=== PATIENT | female | born 1945 | race Caucasian/White ===

== ENCOUNTER → 2017-06-24 | Day surgery (SDC) | payer MEDICARE ==
[~2017-06-24] VITALS: Ht 175.3 cm; Wt 58.5 kg
[~2017-06-24] MED LIST: /WARF25TA PO; ACETYLCHOLINE OPHTH SOLN 1% 2ML (MIOCHOL-E) As Ordered ONE; ACTE20IN SQ; BALANCED SALT IRRIGATION SOLUTION 500ML BAG (FOR OR EYE MACHINE) As Ordered ONE; CEFUROXIME 1MG/0.1ML INTRACAMERAL INJ As Ordered ONE; CELE20TA OR; CITA40TA4 PO; COLA50CA3 PO; DUOVISC (0.50ML VISCOAT/0.55ML PROVISC) OPHTH KIT As Ordered ONE; FERR1TAB8 PO; HYDR-3719 PO; IRON325T3 PO; LIDOCAINE 0.75%/EPINEPHRINE 0.025% IN BSS 1ML SYR INTRACAMERAL (OR ONLY) As Ordered ONE; LR 1,000 ML IV ONE; METH2.5T OR; METH2.5TA PO; MIDAZOLAM INJ 2 MG/2 ML VIAL (J2250) As Ordered ONE; MOM30SS PO; NICO21DI26 EXT; OFLOXACIN 0.3 % (OCUFLOX) OPTH SOL 5ML OS ONE; OXYC30TA4 PO; PERCOCET PO; PHENYLEPHRINE 2.5% OPHTH SOL 2ML OS ONE; POLYBTL PO; POVIDONE-IODINE 5% OPHTH PREP SOL 30ML As Ordered ONE; PROPARACAINE 0.5% OPHTH SOL 15ML OS ONE; TOLT1CAP PO; TRAM50TA2 OR; TRAM50TA2 PO; TROPICAMIDE 1% OPHTH SOLN 2ML OS ONE; VICODINES TAB OR; fentaNYL 100 MCG/2 ML INJECTION (J3010) As Ordered ONE; remicade
[2017-06-24 09:30] VITALS: BP 154/85
--- NOTE | 2017-06-24 20:30 | RO ---
DATE OF PROCEDURE: 06/24/2017 PREOPERATIVE DIAGNOSES: 1. Dense visually significant nuclear sclerotic cataract left eye. 2. Small pupil left eye. POSTOPERATIVE DIAGNOSES: 1. Dense visually significant nuclear sclerotic cataract left eye. 2. Small pupil left eye. 3. Intraoperative floppy iris syndrome left eye. PROCEDURE: Complex cataract extraction with use of phacoemulsification, Malyugin ring and ReSure sealant, and placement of intraocular lens AU00TO, 22.5 diopter, left eye. SURGEON: Manuel Ricketts DO AMERICANIZATION TEACHER: ANESTHESIA: Local with monitored anesthesia care (MAC) epinephrine). COMPLICATIONS: None. POSTOPERATIVE CONDITION: Stable. INDICATION FOR SURGERY: Blurred vision left eye affecting patient's activities of daily living. DESCRIPTION OF PROCEDURE: The patient was seen in the preoperative area and properly identified. The correct operative eye was identified and marked. Attention was turned to that eye. The patient received optical antibiotics in the preoperative area. The patient then received topical dilating drops consisting of tropicamide and phenylephrine. The patient was then transferred to the operating room. The correct side was reidentified. The patient received topical anesthetics and antibiotics on the surface of the eye. The eye was prepped and draped in a sterile fashion. The upper and lower eyelids were isolated with Tegaderm tape, and the lids were held open with an adjustable speculum. Using a sideport blade, a paracentesis incision was made. Shugarcaine was then injected into the anterior chamber. Viscoelastic was then injected into the anterior chamber through the paracentesis. Using a 2.4 mm sharp-tipped keratome, the anterior chamber was entered via a temporal clear corneal incision. A 7.0mm Malyugin ring was placed. A continuous curvilinear capsulorrhexis was created with the aid of a 26-gauge cystotome and Utrata forceps. Hydrodissection was performed with BSS on a blunt cannula until the nucleus was freely mobile. The crystalline lens was phacoemulsified and aspirated. Additional cohesive viscoelastic was placed into the capsular bag to deepen it. A AU00TO, 22.5 diopter lens was placed into the capsular bag and confirmed by visualizing the continuous curvilinear capsulorrhexis. Additional irrigation and aspiration was used to remove cortical material. The Malyugin ring was removed from the eye, and irrigation and aspiration was then used removing the remaining viscoelastic. The clear corneal incision was hydrated with BSS on a blunt cannula. The lens was well positioned. The incisions were then tested for leaks and found to be negative. The eye was then palpated for appropriate pressure and adjusted accordingly with BSS. Several drops of antibiotics and Iopidine were placed in the eye. The eyelid speculum was then carefully removed. A shield was placed. The patient tolerated the procedure well and was discharged to the recovery unit in a stable condition. MICKI
== END | disposition home or self-care (01) ==
LOC: M SDC 07:25
PROVIDERS: ATTEND Ophthalmology
DX: H25.12 Age-related nuclear cataract, left eye (principal); H57.03 Miosis; H21.81 Floppy iris syndrome; M06.9 Rheumatoid arthritis, unspecified; F32.9 Major depressive disorder, single episode, unspecified; F41.9 Anxiety disorder, unspecified; Z78.0 Asymptomatic menopausal state; F17.210 Nicotine dependence, cigarettes, uncomplicated; Z79.899 Other long term (current) drug therapy
CPT/HCPCS: 66982; J2250; J3010; V2632

== ENCOUNTER 2017-07-08 07:01 | Day surgery (SDC) | payer MEDICARE ==
[~2017-07-08] VITALS: Ht 175.3 cm; Wt 58.5 kg
[~2017-07-08 07:01] MED LIST changes: -LR 1,000 ML IV ONE; -MIDAZOLAM INJ 2 MG/2 ML VIAL (J2250) As Ordered ONE; +OFLOXACIN 0.3 % (OCUFLOX) OPTH SOL 5ML OD ONE; -OFLOXACIN 0.3 % (OCUFLOX) OPTH SOL 5ML OS ONE; +PHENYLEPHRINE 2.5% OPHTH SOL 2ML OD ONE; -PHENYLEPHRINE 2.5% OPHTH SOL 2ML OS ONE; +PROPARACAINE 0.5% OPHTH SOL 15ML OD ONE; -PROPARACAINE 0.5% OPHTH SOL 15ML OS ONE; +TROPICAMIDE 1% OPHTH SOLN 2ML OD ONE; -TROPICAMIDE 1% OPHTH SOLN 2ML OS ONE; -fentaNYL 100 MCG/2 ML INJECTION (J3010) As Ordered ONE
[2017-07-08] MEDS ORDERED: fentaNYL 100 MCG/2 ML INJECTION (J3010) As Ordered ONE (07:12)
[2017-07-08] MEDS ORDERED: MIDAZOLAM INJ 2 MG/2 ML VIAL (J2250) As Ordered ONE (07:12)
[2017-07-08] MEDS ORDERED: LR 500 ML IV ONE (07:15)
[2017-07-08 09:30] VITALS: BP 163/98
[2017-07-08] MEDS ORDERED: ONDANSETRON 4MG/2ML VIAL (J2405) IV PRN (09:30)
[2017-07-08] MEDS ORDERED: LR 1,000 ML IV SCH (09:30)
--- NOTE | 2017-07-08 15:49 | IPN ---
DATE: 07/08/2017 PREOPERATIVE DIAGNOSES: 1. Visually significant nuclear sclerotic cataract right eye. 2. Small pupil. POSTOPERATIVE DIAGNOSES: 1. Visually significant nuclear sclerotic cataract right eye. 2. Small pupil. PROCEDURE: Complex cataract extraction with insertion of intraocular lens implant with use of Malyugin ring. AU00T0, 22.5 diopters, right eye SURGEON: Manuel Ricketts DO FORK ASSEMBLER: ANESTHESIA: Local with monitored anesthesia care (MAC). COMPLICATIONS: None. POSTOPERATIVE CONDITION: Stable. INDICATION FOR SURGERY: Blurred vision right eye affecting patient's activities of daily living. DESCRIPTION OF PROCEDURE: The patient was seen in the preoperative area and properly identified. The correct operative eye was identified and marked. Attention was turned to that eye. The patient received topical antibiotics in the preoperative area. The patient then received topical dilating drops consisting of Tropicamide and Phenylephrine. The patient was then transferred to the operating room. The correct side was re-identified. The patient received topical anesthetics and antibiotics on the surface of the eye. The eye was prepped and draped in a sterile fashion. The upper and lower eyelids were isolated with Tegaderm tape, and the lids were held open with an adjustable speculum. Using a sideport blade, a paracentesis incision was made. Intraocular preservative-free lidocaine was then injected into the anterior chamber. Viscoelastic was then injected into the anterior chamber through the paracentesis. Using a 2.4 mm sharp-tipped keratome, the anterior chamber was entered via a temporal clear corneal incision. A Malyugin ring was placed. A continuous curvilinear capsulorrhexis was created with the aid of a 26g cystotome and utrata forceps. Hydrodissection was performed with balanced salt solution (BSS) on a blunt cannula until the nucleus was freely mobile. The crystalline lens was phacoemulsified and aspirated. Additional cohesive viscoelastic was placed into the capsular bag to deepen it. An AU00T0, 22.5 diopters lens was placed into the capsular bag and confirmed by visualizing the continuous curvilinear capsulorrhexis. The Malyugin ring was removed. Additional irrigation and aspiration was used to remove cortical material and remaining viscoelastic. The clear corneal incision was hydrated with BSS on a blunt cannula. The lens was well positioned. The incisions were then tested for leaks and found to be negative. The eye was then palpated for appropriate pressure and adjusted accordingly with BSS. The eyelid speculum was carefully removed. A shield was placed. The patient tolerated the procedure well and was discharged to the recovery unit in a stable condition. MICKI
== END 2017-07-08 09:54 | disposition home or self-care (01) ==
LOC: M SDC 07:01
PROVIDERS: ATTEND Ophthalmology
DX: H25.11 Age-related nuclear cataract, right eye (principal); H57.03 Miosis; M06.9 Rheumatoid arthritis, unspecified; R23.3 Spontaneous ecchymoses; F41.9 Anxiety disorder, unspecified; F32.9 Major depressive disorder, single episode, unspecified; Z79.899 Other long term (current) drug therapy; Z92.21 Personal history of antineoplastic chemotherapy; Z98.51 Tubal ligation status; Z72.0 Tobacco use
CPT/HCPCS: 66982; J2250; J3010; V2632

== ENCOUNTER 2018-02-19 18:54 | Inpatient (IN) | payer MEDICARE ==
[2018-02-19 20:07] LABS: BASO # 0.1 10^3/uL (0.0-0.2); BASO % 0.8 % (0.0-1.0); EOS # 0.2 10^3/uL (0.0-0.50); EOS % 1.4 % (0.0-3.0); HEMATOCRIT 35.5 % (36.0-47.0); HEMOGLOBIN 12.5 g/dl (12.0-15.5); IMMATURE GRANULOCYTE % 0.7 % (0-3.0); LYMPH # 1.2 10^3/uL (1.5-4.5); MEAN CORPUSCULAR HEMOGLOBIN 32.8 pg (27.0-33.0); MEAN CORPUSCULAR HGB CONC 35.2 g/dl (32.0-36.5); MEAN CORPUSCULAR VOLUME 93.2 fl (80.0-96.0); MONO # 0.9 10^3/uL (0.0-0.8); MONO % 7.9 % (0.0-5.0); NEUTROPHILS # 8.7 10^3/uL (1.8-7.7); NEUTROPHILS % 78.2 % (36.0-66.0); PLATELET COUNT, AUTOMATED 213 10^3/uL (150-450); RED BLOOD COUNT 3.81 10^6/uL (4.00-5.40); RED CELL DISTRIBUTION WIDTH 12.4 % (11.5-14.5); WHITE BLOOD COUNT 11.1 10^3/uL (4.0-10.0)
[2018-02-19 20:11] LABS: INR 1.02; PARTIAL THROMBOPLASTIN TIME 29.3 SECONDS (26.8-37.9); PROTHROMBIN TIME 13.5 SECONDS (12.4-14.5)
[2018-02-19] MEDS: MORPHINE 2 MG/ML 1ML SYRINGE (J2270) IV (20:18)
[2018-02-19 20:57] LABS: ANION GAP 8 MEQ/L (8-16); BLOOD UREA NITROGEN 13 MG/DL (7-18); CALCIUM LEVEL 8.8 MG/DL (8.8-10.2); CARBON DIOXIDE LEVEL 31 MEQ/L (21-32); CHLORIDE LEVEL 96 MEQ/L (98-107); CREATININE FOR GFR 0.73 MG/DL (0.55-1.30); GLOMERULAR FILTRATION RATE > 60.0 (>39); GLUCOSE, FASTING 160 MG/DL (70-100); POTASSIUM SERUM 3.4 MEQ/L (3.5-5.1); SODIUM LEVEL 135 MEQ/L (136-145)
[2018-02-19 21:45] LABS: APPEARANCE, URINE HAZY (CLEAR); BACTERIA, URINE AUTO 2+ (NEGATIVE); BILIRUBIN, URINE AUTO NEGATIVE (NEGATIVE); BLOOD, URINE BLOOD 2+ (NEGATIVE); COLOR, URINE YELLOW (YELLOW); GLUCOSE, URINE (UA) AUTO NEGATIVE (NEGATIVE); KETONE, URINE AUTO NEGATIVE (NEGATIVE); LEUKOCYTE ESTERASE, URINE AUTO TRACE (NEGATIVE); MUCUS, URINE SMALL (NEGATIVE); NITRITE, URINE AUTO NEGATIVE (NEGATIVE); PROTEIN, URINE AUTO NEGATIVE (NEGATIVE); RBC, URINE AUTO 14 /HPF (0-3); SPECIFIC GRAVITY URINE AUTO 1.011 (1.002-1.035); SQUAMOUS EPITHELIAL CELL UR AU 2 /HPF (0-6); UROBILINOGEN, URINE AUTO 0.2 mg/dL (0.0-2.0); WBC, URINE AUTO 4 /HPF (0-3)
[2018-02-19] MEDS: MORPHINE 4 MG/ML 1ML VIAL/SYRINGE (J2270) IV (22:00)
[2018-02-19] MEDS: HEPARIN SOD (PORCINE) 5000 UNITS/ML VIAL SC (22:41)
[2018-02-19] MEDS: NS 1,000 ML IV (22:42)
[2018-02-19] MEDS: POTASSIUM CHLORIDE 10 MEQ SR TABLET PO (22:42)
[2018-02-20] MEDS: MORPHINE 4 MG/ML 1ML VIAL/SYRINGE (J2270) IV ×7 (00:08→21:59)
[2018-02-20] MEDS: HEPARIN SOD (PORCINE) 5000 UNITS/ML VIAL SC (05:55)
[2018-02-20 06:36] LABS: BASO % 0.2 % (0.0-1.0); HEMATOCRIT 25.9 % (36.0-47.0); IMMATURE GRANULOCYTE % 0.4 % (0-3.0); LYMPH # 0.9 10^3/uL (1.5-4.5); LYMPH % 6.2 % (24.0-44.0); MEAN CORPUSCULAR HEMOGLOBIN 33.3 pg (27.0-33.0); MEAN CORPUSCULAR HGB CONC 35.9 g/dl (32.0-36.5); MEAN CORPUSCULAR VOLUME 92.8 fl (80.0-96.0); MONO # 0.9 10^3/uL (0.0-0.8); MONO % 6.3 % (0.0-5.0); NEUTROPHILS # 12.9 10^3/uL (1.8-7.7); NEUTROPHILS % 86.9 % (36.0-66.0); PLATELET COUNT, AUTOMATED 171 10^3/uL (150-450); RED BLOOD COUNT 2.79 10^6/uL (4.00-5.40); RED CELL DISTRIBUTION WIDTH 12.4 % (11.5-14.5); WHITE BLOOD COUNT 14.9 10^3/uL (4.0-10.0)
[2018-02-20 06:47] LABS: HEMOGLOBIN 9.3 g/dl (12.0-15.5)
[2018-02-20 06:56] LABS: ESTIMATED AVERAGE GLUCOSE 91 MG/DL (60-110); HEMOGLOBIN A1c 4.8 %
[2018-02-20 06:59] LABS: ALBUMIN 3.1 GM/DL (3.2-5.2); ALBUMIN/GLOBULIN RATIO 1.24 (1.00-1.93); ALKALINE PHOSPHATASE 54 U/L (45-117); ALT/SGPT 17 U/L (12-78); ANION GAP 6 MEQ/L (8-16); AST/SGOT 13 U/L (7-37); BILIRUBIN,TOTAL 0.5 MG/DL (0.2-1.0); BLOOD UREA NITROGEN 15 MG/DL (7-18); CALCIUM LEVEL 7.9 MG/DL (8.8-10.2); CARBON DIOXIDE LEVEL 30 MEQ/L (21-32); CHLORIDE LEVEL 100 MEQ/L (98-107); CREATININE FOR GFR 0.52 MG/DL (0.55-1.30); GLOMERULAR FILTRATION RATE > 60.0 (>39); GLUCOSE, FASTING 155 MG/DL (70-100); MAGNESIUM LEVEL 1.8 MG/DL (1.8-2.4); POTASSIUM SERUM 3.7 MEQ/L (3.5-5.1); SODIUM LEVEL 136 MEQ/L (136-145); TOTAL PROTEIN 5.6 GM/DL (6.4-8.2)
[2018-02-20] MEDS: ACETAMINOPHEN TAB 650MG DOSE (2X325MG) PO (07:27)
[2018-02-20] MEDS: NS 1,000 ML IV (07:28)
[2018-02-20] MEDS: FLUoxetine 20 MG CAP PO (09:00)
[2018-02-20] MEDS: ONDANSETRON 4MG/2ML VIAL (J2405) IV (10:38)
[2018-02-20] MEDS: BUPIVACAINE HCL 0.25% 30 ML VIAL As Ordered (15:28)
[2018-02-20] MEDS ORDERED: MIDAZOLAM INJ 2 MG/2 ML VIAL (J2250) As Ordered (15:59)
[2018-02-20] MEDS ORDERED: KETAMINE HCL 200 MG/20 ML VIAL As Ordered (16:00)
[2018-02-20] MEDS ORDERED: fentaNYL 100 MCG/2 ML INJECTION (J3010) As Ordered (16:00)
[2018-02-20] MEDS: ceFAZolin 2 GM/D5W 50 ML IV BAG (J0690 PER 500MG) As Ordered (16:20)
[2018-02-20] MEDS: ceFAZolin 1GM INJ (J0690 PER 500MG) As Ordered (16:53)
[2018-02-20] MEDS ORDERED: PHENYLephrine HCL 500 MCG/5 ML (100MCG/ML) SYRINGE (J2370) As Ordered (17:38)
[2018-02-20] MEDS ORDERED: PHENYLEPHRINE INJ 10MG/ML VIAL (J2370) As Ordered ×2 (17:38→17:46)
[2018-02-20] MEDS: BUPIVACAINE/EPIN 0.5% 30 ML VIAL As Ordered (17:41)
[2018-02-20] MEDS: LR 1,000 ML IV ×2 (18:05→19:45)
[2018-02-20] MEDS: PHENYLEPHRINE HCL INJ 50 MG in D5W 500 ML IV (18:05)
[2018-02-20] MEDS ORDERED: ONDANSETRON 4MG/2ML VIAL (J2405) IV (18:30)
[2018-02-20] MEDS ORDERED: fentaNYL 100 MCG/2 ML INJECTION (J3010) IV (18:30)
[2018-02-20] MEDS ORDERED: PERCOCET 5MG/325MG TAB PO (18:30)
[2018-02-20] MEDS: NICOTINE 21MG/24HR 1 EA TRANSDERMAL TD (20:58)
[2018-02-20] MEDS: PERCOCET 5MG/325MG TAB PO (21:47)
[2018-02-21] MEDS: ceFAZolin SOD 1 GM in D5W MINI-BAG PLUS 50 ML IV ×2 (00:04→09:30)
[2018-02-21] MEDS: ACETAMINOPHEN TAB 650MG DOSE (2X325MG) PO (00:05)
[2018-02-21] MEDS: PERCOCET 5MG/325MG TAB PO ×4 (04:22→17:01)
[2018-02-21 06:44] LABS: BASO % 0.3 % (0.0-1.0); EOS % 0.1 % (0.0-3.0); HEMATOCRIT 18.2 % (36.0-47.0); IMMATURE GRANULOCYTE % 0.9 % (0-3.0); LYMPH # 1.3 10^3/uL (1.5-4.5); LYMPH % 12.4 % (24.0-44.0); MEAN CORPUSCULAR HEMOGLOBIN 33.3 pg (27.0-33.0); MEAN CORPUSCULAR HGB CONC 35.7 g/dl (32.0-36.5); MEAN CORPUSCULAR VOLUME 93.3 fl (80.0-96.0); MONO # 1.1 10^3/uL (0.0-0.8); MONO % 9.9 % (0.0-5.0); NEUTROPHILS # 8.2 10^3/uL (1.8-7.7); NEUTROPHILS % 76.4 % (36.0-66.0); PLATELET COUNT, AUTOMATED 119 10^3/uL (150-450); RED BLOOD COUNT 1.95 10^6/uL (4.00-5.40); RED CELL DISTRIBUTION WIDTH 12.5 % (11.5-14.5); WHITE BLOOD COUNT 10.7 10^3/uL (4.0-10.0)
[2018-02-21 06:46] LABS: HEMOGLOBIN 6.5 g/dl (12.0-15.5); POS COUNT POS FLAG
[2018-02-21 06:54] LABS: ALBUMIN 2.6 GM/DL (3.2-5.2); ALBUMIN/GLOBULIN RATIO 1.24 (1.00-1.93); ALKALINE PHOSPHATASE 41 U/L (45-117); ALT/SGPT 22 U/L (12-78); ANION GAP 6 MEQ/L (8-16); AST/SGOT 20 U/L (7-37); BILIRUBIN,TOTAL 0.4 MG/DL (0.2-1.0); BLOOD UREA NITROGEN 21 MG/DL (7-18); CALCIUM LEVEL 7.9 MG/DL (8.8-10.2); CARBON DIOXIDE LEVEL 28 MEQ/L (21-32); CHLORIDE LEVEL 100 MEQ/L (98-107); CREATININE FOR GFR 0.73 MG/DL (0.55-1.30); GLOMERULAR FILTRATION RATE > 60.0 (>39); GLUCOSE, FASTING 137 MG/DL (70-100); MAGNESIUM LEVEL 1.8 MG/DL (1.8-2.4); POTASSIUM SERUM 3.7 MEQ/L (3.5-5.1); SODIUM LEVEL 134 MEQ/L (136-145); TOTAL PROTEIN 4.7 GM/DL (6.4-8.2)
[2018-02-21 07:45] LABS: LDH LACTATE DEHYDROGENASE 237 U/L (84-246); TOTAL IRON BINDING CAPACITY 224 UG/DL (250-450)
[2018-02-21 08:03] LABS: FERRITIN 961 NG/ML (8-252)
[2018-02-21 08:26] LABS: IRON (FE) 44 UG/DL (50-170); PERCENT SATURATION 19.6 % (13.2-45.0)
[2018-02-21] MEDS: MORPHINE 4 MG/ML 1ML VIAL/SYRINGE (J2270) IV ×6 (08:30→21:49)
[2018-02-21] MEDS: SENOKOT S TAB PO ×2 (08:31→20:47)
[2018-02-21] MEDS: MIRALAX *UNIT DOSE* 17GM PACKET PO (08:31)
[2018-02-21] MEDS: FLUoxetine 20 MG CAP PO (08:31)
[2018-02-21] MEDS: MOM 30ML SUSPENSION UDC PO (08:31)
[2018-02-21] MEDS: NICOTINE 21MG/24HR 1 EA TRANSDERMAL TD (08:31)
[2018-02-21] MEDS: LR 1,000 ML IV ×2 (08:32→20:45)
[2018-02-21] MEDS: ONDANSETRON 4MG/2ML VIAL (J2405) IV (08:33)
[2018-02-21 10:35] LABS: IMMEDIATE SPIN CROSSMATCH 1 2
[2018-02-21] MEDS: LACTOBACILLUS ACIDOPHILUS CAP (BACID) PO ×2 (12:30→17:01)
[2018-02-21] MEDS: ALPRAZolam 0.25 MG TAB PO ×2 (13:45→21:47)
[2018-02-21 14:56] LABS: HEMATOCRIT 25.3 % (36.0-47.0); HEMOGLOBIN 8.9 g/dl (12.0-15.5)
[2018-02-21 14:58] LABS: INR 1.24; PROTHROMBIN TIME 15.8 SECONDS (12.4-14.5)
[2018-02-21 15:09] LABS: FOLATE 5.8 NG/ML (>5.4)
[2018-02-21 15:09] LABS: VITAMIN B12 LEVEL 262 PG/ML (247-911)
[2018-02-21] MEDS: WARFARIN SOD 5 MG TAB PO (15:55)
[2018-02-21] MEDS ORDERED: ANALGESIC BALM CRM 120 GM TOP (18:15)
[2018-02-21 21:04] LABS: HEMATOCRIT 25.5 % (36.0-47.0); HEMOGLOBIN 9.2 g/dl (12.0-15.5)
[2018-02-22] MEDS: MORPHINE 4 MG/ML 1ML VIAL/SYRINGE (J2270) IV (00:56)
[2018-02-22] MEDS: PERCOCET 5MG/325MG TAB PO ×5 (01:32→21:58)
[2018-02-22 06:41] LABS: BASO % 0.1 % (0.0-1.0); EOS % 0.2 % (0.0-3.0); HEMATOCRIT 23.5 % (36.0-47.0); HEMOGLOBIN 8.4 g/dl (12.0-15.5); IMMATURE GRANULOCYTE % 0.5 % (0-3.0); LYMPH # 1.7 10^3/uL (1.5-4.5); LYMPH % 17.7 % (24.0-44.0); MEAN CORPUSCULAR HEMOGLOBIN 32.3 pg (27.0-33.0); MEAN CORPUSCULAR HGB CONC 35.7 g/dl (32.0-36.5); MEAN CORPUSCULAR VOLUME 90.4 fl (80.0-96.0); MONO # 0.9 10^3/uL (0.0-0.8); MONO % 9.3 % (0.0-5.0); NEUTROPHILS # 6.8 10^3/uL (1.8-7.7); NEUTROPHILS % 72.2 % (36.0-66.0); RED CELL DISTRIBUTION WIDTH 14.1 % (11.5-14.5); WHITE BLOOD COUNT 9.5 10^3/uL (4.0-10.0)
[2018-02-22 06:47] LABS: INR 1.76
[2018-02-22 07:00] LABS: ALBUMIN 2.4 GM/DL (3.2-5.2); ALBUMIN/GLOBULIN RATIO 0.96 (1.00-1.93); ALKALINE PHOSPHATASE 41 U/L (45-117); ALT/SGPT 16 U/L (12-78); ANION GAP 6 MEQ/L (8-16); AST/SGOT 26 U/L (7-37); BILIRUBIN,TOTAL 0.5 MG/DL (0.2-1.0); BLOOD UREA NITROGEN 17 MG/DL (7-18); CALCIUM LEVEL 7.6 MG/DL (8.8-10.2); CARBON DIOXIDE LEVEL 26 MEQ/L (21-32); CHLORIDE LEVEL 100 MEQ/L (98-107); CREATININE FOR GFR 0.55 MG/DL (0.55-1.30); GLOMERULAR FILTRATION RATE > 60.0 (>39); GLUCOSE, FASTING 106 MG/DL (70-100); POTASSIUM SERUM 3.7 MEQ/L (3.5-5.1); SODIUM LEVEL 132 MEQ/L (136-145); TOTAL PROTEIN 4.9 GM/DL (6.4-8.2)
[2018-02-22 07:09] LABS: PLATELET COUNT, AUTOMATED 93 10^3/uL (150-450)
[2018-02-22 07:10] LABS: IMMATURE PLATELET FRACTION % 4.2 % (0.0-9.6)
[2018-02-22] MEDS: MIRALAX *UNIT DOSE* 17GM PACKET PO (08:02)
[2018-02-22] MEDS: NICOTINE 21MG/24HR 1 EA TRANSDERMAL TD (08:02)
[2018-02-22] MEDS: LACTOBACILLUS ACIDOPHILUS CAP (BACID) PO ×3 (08:03→17:00)
[2018-02-22] MEDS: ALPRAZolam 0.25 MG TAB PO ×2 (08:03→20:08)
[2018-02-22] MEDS: SENOKOT S TAB PO ×2 (08:03→20:08)
[2018-02-22] MEDS: FLUoxetine 20 MG CAP PO (08:03)
[2018-02-22] MEDS: MOM 30ML SUSPENSION UDC PO (08:04)
[2018-02-22 08:06] LABS: HAPTOGLOBIN 40 mg/dL (34-200)
[2018-02-22] MEDS: WARFARIN SOD 2.5 MG TAB PO (17:00)
[2018-02-23] MEDS: PERCOCET 5MG/325MG TAB PO ×5 (02:46→20:29)
[2018-02-23 06:39] LABS: BASO % 0.1 % (0.0-1.0); EOS # 0.1 10^3/uL (0.0-0.50); EOS % 1.4 % (0.0-3.0); HEMATOCRIT 22.4 % (36.0-47.0); HEMOGLOBIN 7.8 g/dl (12.0-15.5); IMMATURE GRANULOCYTE % 0.3 % (0-3.0); LYMPH # 2.1 10^3/uL (1.5-4.5); LYMPH % 28.6 % (24.0-44.0); MEAN CORPUSCULAR HEMOGLOBIN 31.8 pg (27.0-33.0); MEAN CORPUSCULAR HGB CONC 34.8 g/dl (32.0-36.5); MEAN CORPUSCULAR VOLUME 91.4 fl (80.0-96.0); MONO # 0.7 10^3/uL (0.0-0.8); MONO % 9.2 % (0.0-5.0); NEUTROPHILS # 4.5 10^3/uL (1.8-7.7); NEUTROPHILS % 60.4 % (36.0-66.0); PLATELET COUNT, AUTOMATED 122 10^3/uL (150-450); RED BLOOD COUNT 2.45 10^6/uL (4.00-5.40); RED CELL DISTRIBUTION WIDTH 13.8 % (11.5-14.5); WHITE BLOOD COUNT 7.4 10^3/uL (4.0-10.0)
[2018-02-23 06:49] LABS: INR 2.78; PROTHROMBIN TIME 30.5 SECONDS (12.4-14.5)
[2018-02-23 07:01] LABS: ALBUMIN 2.5 GM/DL (3.2-5.2); ALBUMIN/GLOBULIN RATIO 1.04 (1.00-1.93); ALKALINE PHOSPHATASE 38 U/L (45-117); ALT/SGPT 19 U/L (12-78); ANION GAP 4 MEQ/L (8-16); AST/SGOT 20 U/L (7-37); BILIRUBIN,TOTAL 0.5 MG/DL (0.2-1.0); BLOOD UREA NITROGEN 15 MG/DL (7-18); CALCIUM LEVEL 7.6 MG/DL (8.8-10.2); CARBON DIOXIDE LEVEL 31 MEQ/L (21-32); CHLORIDE LEVEL 100 MEQ/L (98-107); CREATININE FOR GFR 0.55 MG/DL (0.55-1.30); GLOMERULAR FILTRATION RATE > 60.0 (>39); GLUCOSE, FASTING 103 MG/DL (70-100); POTASSIUM SERUM 3.4 MEQ/L (3.5-5.1); SODIUM LEVEL 135 MEQ/L (136-145); TOTAL PROTEIN 4.9 GM/DL (6.4-8.2)
[2018-02-23] MEDS: MIRALAX *UNIT DOSE* 17GM PACKET PO (08:40)
[2018-02-23] MEDS: MOM 30ML SUSPENSION UDC PO (08:40)
[2018-02-23] MEDS: LACTOBACILLUS ACIDOPHILUS CAP (BACID) PO ×3 (08:40→17:08)
[2018-02-23] MEDS: FLUoxetine 20 MG CAP PO (08:41)
[2018-02-23] MEDS: POTASSIUM CHLORIDE 10 MEQ SR TABLET PO (08:41)
[2018-02-23] MEDS: NICOTINE 21MG/24HR 1 EA TRANSDERMAL TD (08:41)
[2018-02-23] MEDS: ALPRAZolam 0.25 MG TAB PO ×3 (08:41→21:47)
[2018-02-23] MEDS: SENOKOT S TAB PO ×2 (08:41→20:29)
[2018-02-23] MEDS: MORPHINE 4 MG/ML 1ML VIAL/SYRINGE (J2270) IV ×2 (10:20→22:58)
[2018-02-23 14:02] LABS: HEMATOCRIT 22.3 % (36.0-47.0); HEMOGLOBIN 7.9 g/dl (12.0-15.5); MEAN CORPUSCULAR HEMOGLOBIN 33.1 pg (27.0-33.0); MEAN CORPUSCULAR HGB CONC 35.4 g/dl (32.0-36.5); MEAN CORPUSCULAR VOLUME 93.3 fl (80.0-96.0); PLATELET COUNT, AUTOMATED 149 10^3/uL (150-450); RED BLOOD COUNT 2.39 10^6/uL (4.00-5.40); WHITE BLOOD COUNT 8.4 10^3/uL (4.0-10.0)
[2018-02-24] MEDS: PERCOCET 5MG/325MG TAB PO ×6 (01:32→23:49)
[2018-02-24 06:39] LABS: BASO % 0.6 % (0.0-1.0); EOS # 0.1 10^3/uL (0.0-0.50); EOS % 2.1 % (0.0-3.0); HEMATOCRIT 22.2 % (36.0-47.0); HEMOGLOBIN 7.7 g/dl (12.0-15.5); IMMATURE GRANULOCYTE % 0.4 % (0-3.0); LYMPH % 29.4 % (24.0-44.0); MEAN CORPUSCULAR HGB CONC 34.7 g/dl (32.0-36.5); MEAN CORPUSCULAR VOLUME 95.3 fl (80.0-96.0); MONO # 0.7 10^3/uL (0.0-0.8); MONO % 9.6 % (0.0-5.0); NEUTROPHILS # 3.9 10^3/uL (1.8-7.7); NEUTROPHILS % 57.9 % (36.0-66.0); PLATELET COUNT, AUTOMATED 153 10^3/uL (150-450); RED BLOOD COUNT 2.33 10^6/uL (4.00-5.40); RED CELL DISTRIBUTION WIDTH 14.3 % (11.5-14.5); WHITE BLOOD COUNT 6.8 10^3/uL (4.0-10.0)
[2018-02-24 06:51] LABS: INR 1.98; PROTHROMBIN TIME 23.2 SECONDS (12.4-14.5)
[2018-02-24 06:54] LABS: ALBUMIN 2.7 GM/DL (3.2-5.2); ALBUMIN/GLOBULIN RATIO 1.08 (1.00-1.93); ALKALINE PHOSPHATASE 41 U/L (45-117); ALT/SGPT 23 U/L (12-78); ANION GAP 3 MEQ/L (8-16); AST/SGOT 20 U/L (7-37); BILIRUBIN,TOTAL 0.7 MG/DL (0.2-1.0); BLOOD UREA NITROGEN 14 MG/DL (7-18); CALCIUM LEVEL 7.6 MG/DL (8.8-10.2); CARBON DIOXIDE LEVEL 32 MEQ/L (21-32); CHLORIDE LEVEL 101 MEQ/L (98-107); CREATININE FOR GFR 0.53 MG/DL (0.55-1.30); GLOMERULAR FILTRATION RATE > 60.0 (>39); GLUCOSE, FASTING 102 MG/DL (70-100); MAGNESIUM LEVEL 2.1 MG/DL (1.8-2.4); SODIUM LEVEL 136 MEQ/L (136-145); TOTAL PROTEIN 5.2 GM/DL (6.4-8.2)
[2018-02-24] MEDS: MIRALAX *UNIT DOSE* 17GM PACKET PO (08:44)
[2018-02-24] MEDS: NICOTINE 21MG/24HR 1 EA TRANSDERMAL TD (08:44)
[2018-02-24] MEDS: MORPHINE 15 MG SA TAB PO ×2 (08:45→20:30)
[2018-02-24] MEDS: FLUoxetine 20 MG CAP PO (08:45)
[2018-02-24] MEDS: MOM 30ML SUSPENSION UDC PO (08:45)
[2018-02-24] MEDS: SENOKOT S TAB PO ×2 (08:46→19:40)
[2018-02-24] MEDS: LACTOBACILLUS ACIDOPHILUS CAP (BACID) PO ×3 (08:46→17:27)
[2018-02-24] MEDS: ALPRAZolam 0.25 MG TAB PO ×2 (08:56→21:39)
[2018-02-24 10:44] LABS: IMMEDIATE SPIN CROSSMATCH 1 1
[2018-02-24] MEDS: WARFARIN SOD 2.5 MG TAB PO (17:27)
[2018-02-25] MEDS: PERCOCET 5MG/325MG TAB PO ×3 (05:12→16:09)
[2018-02-25 06:36] LABS: BASO # 0.1 10^3/uL (0.0-0.2); BASO % 0.7 % (0.0-1.0); EOS # 0.3 10^3/uL (0.0-0.50); EOS % 4.5 % (0.0-3.0); HEMATOCRIT 26.6 % (36.0-47.0); HEMOGLOBIN 8.9 g/dl (12.0-15.5); IMMATURE GRANULOCYTE % 0.5 % (0-3.0); LYMPH % 39.4 % (24.0-44.0); MEAN CORPUSCULAR HEMOGLOBIN 31.3 pg (27.0-33.0); MEAN CORPUSCULAR HGB CONC 33.5 g/dl (32.0-36.5); MEAN CORPUSCULAR VOLUME 93.7 fl (80.0-96.0); MONO # 0.8 10^3/uL (0.0-0.8); MONO % 9.9 % (0.0-5.0); NEUTROPHILS # 3.4 10^3/uL (1.8-7.7); PLATELET COUNT, AUTOMATED 201 10^3/uL (150-450); RED BLOOD COUNT 2.84 10^6/uL (4.00-5.40); RED CELL DISTRIBUTION WIDTH 16.4 % (11.5-14.5); WHITE BLOOD COUNT 7.6 10^3/uL (4.0-10.0)
[2018-02-25 06:51] LABS: INR 1.89; PROTHROMBIN TIME 22.3 SECONDS (12.4-14.5)
[2018-02-25 07:16] LABS: ALBUMIN 2.7 GM/DL (3.2-5.2); ALBUMIN/GLOBULIN RATIO 1.13 (1.00-1.93); ALKALINE PHOSPHATASE 48 U/L (45-117); ALT/SGPT 23 U/L (12-78); ANION GAP 6 MEQ/L (8-16); AST/SGOT 19 U/L (7-37); BILIRUBIN,TOTAL 0.8 MG/DL (0.2-1.0); BLOOD UREA NITROGEN 16 MG/DL (7-18); CALCIUM LEVEL 7.7 MG/DL (8.8-10.2); CARBON DIOXIDE LEVEL 28 MEQ/L (21-32); CHLORIDE LEVEL 104 MEQ/L (98-107); CREATININE FOR GFR 0.57 MG/DL (0.55-1.30); GLOMERULAR FILTRATION RATE > 60.0 (>39); GLUCOSE, FASTING 99 MG/DL (70-100); MAGNESIUM LEVEL 2.1 MG/DL (1.8-2.4); SODIUM LEVEL 138 MEQ/L (136-145); TOTAL PROTEIN 5.1 GM/DL (6.4-8.2)
[2018-02-25] MEDS: SENOKOT S TAB PO (08:35)
[2018-02-25] MEDS: MOM 30ML SUSPENSION UDC PO ×2 (08:35→09:00)
[2018-02-25] MEDS: FLUoxetine 20 MG CAP PO (08:35)
[2018-02-25] MEDS: ALPRAZolam 0.25 MG TAB PO (08:36)
[2018-02-25] MEDS: NICOTINE 21MG/24HR 1 EA TRANSDERMAL TD (08:36)
[2018-02-25] MEDS: LACTOBACILLUS ACIDOPHILUS CAP (BACID) PO ×2 (08:36→12:26)
[2018-02-25] MEDS: MORPHINE 15 MG SA TAB PO (08:36)
[2018-02-25] MEDS: MIRALAX *UNIT DOSE* 17GM PACKET PO (09:00)
== END 2018-02-25 16:58 | disposition home or self-care (01) | DRG 481 ==
LOC: M ED 18:54 → M ED INP 21:41 → M MS5PR 23:27
PROC: 0QS606Z Reposition Right Upper Femur with Intramedullary Internal Fixation Device, Open Approach (ICD-10-PCS; principal; 2018-02-20 12:28)
PROC: 30233N1 Transfusion of Nonautologous Red Blood Cells into Peripheral Vein, Percutaneous Approach (ICD-10-PCS; 2018-02-20 16:16)
DX: S72.141A Displaced intertrochanteric fracture of right femur, initial encounter for closed fracture (principal); E87.1 Hypo-osmolality and hyponatremia; D62 Acute posthemorrhagic anemia; S42.291A Other displaced fracture of upper end of right humerus, initial encounter for closed fracture; F32.9 Major depressive disorder, single episode, unspecified; I95.81 Postprocedural hypotension; M06.9 Rheumatoid arthritis, unspecified; E87.6 Hypokalemia; F17.210 Nicotine dependence, cigarettes, uncomplicated; W01.0XXA Fall on same level from slipping, tripping and stumbling without subsequent striking against object, initial encounter; Y92.010 Kitchen of single-family (private) house as the place of occurrence of the external cause; Y93.01 Activity, walking, marching and hiking; Z79.899 Other long term (current) drug therapy; Z98.51 Tubal ligation status; Z98.41 Cataract extraction status, right eye; Z98.42 Cataract extraction status, left eye

== ENCOUNTER → 2018-11-17 | Outpatient (REF) | payer MEDICARE ==
[~2018-11-17] MED LIST changes: -ACETYLCHOLINE OPHTH SOLN 1% 2ML (MIOCHOL-E) As Ordered ONE; +ACTE20IN SC; +ALPR0.25 PO; -BALANCED SALT IRRIGATION SOLUTION 500ML BAG (FOR OR EYE MACHINE) As Ordered ONE; -CEFUROXIME 1MG/0.1ML INTRACAMERAL INJ As Ordered ONE; +COUM2.5T17 PO; -DUOVISC (0.50ML VISCOAT/0.55ML PROVISC) OPHTH KIT As Ordered ONE; -LIDOCAINE 0.75%/EPINEPHRINE 0.025% IN BSS 1ML SYR INTRACAMERAL (OR ONLY) As Ordered ONE; +METH2.5T48 PO; -METH2.5TA PO; -OFLOXACIN 0.3 % (OCUFLOX) OPTH SOL 5ML OD ONE; +PEG1POW PO; +PERC5TAB12 PO; -PHENYLEPHRINE 2.5% OPHTH SOL 2ML OD ONE; -POVIDONE-IODINE 5% OPHTH PREP SOL 30ML As Ordered ONE; -PROPARACAINE 0.5% OPHTH SOL 15ML OD ONE; +PROZ40CA PO; +SENN1TAB2 PO; -TOLT1CAP PO; +TOLT4CAP3 PO; -TROPICAMIDE 1% OPHTH SOLN 2ML OD ONE
[2018-11-17 09:51] LABS: HEMATOCRIT 34.2 % (36.0-47.0); HEMOGLOBIN 11.1 g/dl (12.0-15.5); MEAN CORPUSCULAR HEMOGLOBIN 33.1 pg (27.0-33.0); MEAN CORPUSCULAR HGB CONC 32.5 g/dl (32.0-36.5); MEAN CORPUSCULAR VOLUME 102.1 fl (80.0-96.0); PLATELET COUNT, AUTOMATED 253 10^3/uL (150-450); RED BLOOD COUNT 3.35 10^6/uL (4.00-5.40); WHITE BLOOD COUNT 10.2 10^3/uL (4.0-10.0)
[2018-11-17 10:23] LABS: ALBUMIN 3.5 GM/DL (3.2-5.2); ALT/SGPT 17 U/L (12-78); BILIRUBIN,TOTAL 0.5 MG/DL (0.2-1.0); BLOOD UREA NITROGEN 12 MG/DL (7-18); CALCIUM LEVEL 8.6 MG/DL (8.8-10.2); CARBON DIOXIDE LEVEL 30 MEQ/L (21-32); CHLORIDE LEVEL 103 MEQ/L (98-107); CHOLESTEROL LEVEL 152 MG/DL (<200); CHOLESTEROL RISK RATIO 2.412 (<5); CREATININE FOR GFR 0.48 MG/DL (0.55-1.30); GLOMERULAR FILTRATION RATE > 60.0 (>39); GLUCOSE, FASTING 108 MG/DL (70-100); HDL CHOLESTEROL 63 MG/DL (>40); LDL CHOLESTEROL 75 MG/DL (<100); NON-HDL-C 89 MG/DL; POTASSIUM SERUM 3.5 MEQ/L (3.5-5.1); SODIUM LEVEL 139 MEQ/L (136-145); TOTAL PROTEIN 6.4 GM/DL (6.4-8.2); TRIGLYCERIDES LEVEL 69 MG/DL (<150)
[2018-11-17 10:42] LABS: TOTAL 25(OH) VITAMIN D 76.1 NG/ML (30.0-100.0)
== END ==
LOC: M SFHCPLAZ 08:22
PROVIDERS: ATTEND Nurse Practitioner Adult Health
DX: M06.9 Rheumatoid arthritis, unspecified (principal); E55.9 Vitamin D deficiency, unspecified; Z13.220 Encounter for screening for lipoid disorders; Z91.81 History of falling
CPT/HCPCS: 36415; 80053; 80061; 82306; 85027; G0463

== ENCOUNTER 2019-01-30 20:45 | Inpatient (IN) | payer MEDICARE ==
[~2019-01-30] VITALS: Ht 170.2 cm; Wt 58.2 kg
[~2019-01-30 20:45] MED LIST changes: -ACET-897 PO; -CARA1TAB6 PO; -FERR32TA PO; -HYOS125TA PO; -IBUP-1091 PO; -LORA0.5T11 PO; -MIRT1TAB15 PO; -MORP20SO3 PO; -RANI1TAB6 PO; -ROPI1TAB PO; -TRAM300T9 PO
[2019-01-30] MEDS ORDERED: SUCRALFATE 1 GM TAB PO SCH (21:00)
[2019-01-30] MEDS ORDERED: MIRTAZAPINE 15 MG TAB PO SCH (21:00)
[2019-01-30] MEDS ORDERED: ACETAMINOPHEN 500 MG TAB PO SCH (21:00)
[2019-01-30] MEDS ORDERED: rOPINIRole 1MG TAB PO SCH (21:00)
[2019-01-30] MEDS: SENOKOT S TAB PO SCH (21:00)
[2019-01-30] MEDS ORDERED: FAMOTIDINE 20 MG TAB PO SCH (21:00)
[2019-01-30 21:19] LABS: BASO % 0.1 % (0.0-1.0); EOS % 0.3 % (0.0-3.0); HEMATOCRIT 31.7 % (36.0-47.0); HEMOGLOBIN 10.5 g/dl (12.0-15.5); LYMPH # 0.7 10^3/uL (1.5-4.5); LYMPH % 5.1 % (24.0-44.0); MEAN CORPUSCULAR HEMOGLOBIN 33.8 pg (27.0-33.0); MEAN CORPUSCULAR HGB CONC 33.1 g/dl (32.0-36.5); MEAN CORPUSCULAR VOLUME 101.9 fl (80.0-96.0); MONO # 0.3 10^3/uL (0.0-0.8); MONO % 1.7 % (0.0-5.0); NEUTROPHILS # 13.2 10^3/uL (1.8-7.7); NEUTROPHILS % 92.3 % (36.0-66.0); PLATELET COUNT, AUTOMATED 244 10^3/uL (150-450); RED BLOOD COUNT 3.11 10^6/uL (4.00-5.40); VENOUS BASE EXCESS 1.9 (-2.0-2.0); VENOUS HCO3 26.7 MEQ/L (23.0-27.0); VENOUS O2 SATURATION 82.3 % (60.0-80.0); VENOUS PARTIAL PRESSURE CO2 42.5 mmHg (38.0-50.0); VENOUS PARTIAL PRESSURE O2 47.2 mmHg (30.0-50.0); VENOUS PH 7.416 UNITS (7.330-7.430); VENOUS STANDARD HCO3 25.9 MEQ/L; WHITE BLOOD COUNT 14.3 10^3/uL (4.0-10.0)
[2019-01-30 21:49] LABS: BLOOD UREA NITROGEN 15 MG/DL (7-18); CALCIUM LEVEL 8.2 MG/DL (8.8-10.2); CARBON DIOXIDE LEVEL 28 MEQ/L (21-32); CHLORIDE LEVEL 103 MEQ/L (98-107); CPK CREATINE PHOSPHOKINASE 53 U/L (26-192); GLOMERULAR FILTRATION RATE > 60.0 (>39); GLUCOSE, FASTING 119 MG/DL (70-100); MB/CK RELATIVE INDEX 5.85 (< OR =4); POTASSIUM SERUM 3.3 MEQ/L (3.5-5.1); SODIUM LEVEL 137 MEQ/L (136-145); TROPONIN I 0.03 NG/ML (< 0.10)
[2019-01-30] MEDS ORDERED: cefTRIAXone SOD 1 GM in D5W MINI-BAG PLUS 50 ML IV ONE (22:15)
[2019-01-30] MEDS ORDERED: ALPRAZolam 0.25 MG TAB PO ONE (22:30)
[2019-01-30] MEDS ORDERED: ISOVUE-370 76% 100ML VIAL (Q9967) As Ordered ONE (22:36)
[2019-01-30] MEDS ORDERED: ACETAMINOPHEN TAB 650MG DOSE (2X325MG) PO ONE (23:00)
[2019-01-30] MEDS ORDERED: METOPROLOL 5 MG/5 ML VIAL IV SCH (23:30)
[2019-01-30] MEDS ORDERED: NS 1,000 ML IV ONE (23:45)
--- NOTE | 2019-01-30 23:47 | REPVR ---
EXAM: CT Angiography Chest With Contrast EXAM DATE/TIME: 01/30/2019 10:57 PM CLINICAL HISTORY: 73 years old, female; Chest pain; Additional info: Tachycardia/pneumonia/mass TECHNIQUE: Imaging protocol: Axial computed tomographic angiography images of the chest with intravenous contrast using CT angiography protocol. Coronal and sagittal reformatted images were created and reviewed. 3D rendering: MIP and/or 3D reconstructed images were created and reviewed. Radiation optimization: All CT scans at this facility use at least one of these dose optimization techniques: automated exposure control; mA and/or kV adjustment per patient size (includes targeted exams where dose is matched to clinical indication); or iterative reconstruction. Contrast material: ISOVUE 370; Contrast volume: 75 ml; Contrast route: IV; COMPARISON: CR Chest, 1 view 01/30/2019 9:48 PM FINDINGS: Limitations: Examination is limited by motion artifact. Pulmonary arteries: Normal. No pulmonary emboli. Aorta: Moderate atherosclerotic disease. No aortic aneurysm. No aortic dissection. Lungs: Soft tissue density in the apical right upper lobe with bronchiectasis. Lobulated nodule in the superior segment of the right upper lobe measuring 1.5 x 2.5 x 2.4 cm. The lesion crosses the major fissure and into the right upper lobe. Lobulated soft tissue lesion in the spear segment of the right lower lobe with small central gas measuring 2.8 x 2.8 x 2.8 cm. Patchy areas of mosaic attenuation in the upper lobes bilaterally, right middle lobe, lingula, and less severe in the left lower lobe. Pleural space: Mild left apical pleural thickening. Mild bilateral pleural effusions. No pneumothorax. Heart: Moderate coronary artery calcification. Heart size is within normal limits. Spleen: Ill-defined lesion in the spleen measured 6.0 x 5.8 x 5.2 cm. Lymph nodes: Matted lymphadenopathy in the mediastinum. Bones/joints: Fracture of the proximal right humerus. Visualized fracture fragment appears chronic. Humerus is not fully imaged on the study. Multiple chronic mild to moderate depression deformities of the thoracic spine. No acute fracture. Soft tissues: Unremarkable. IMPRESSION: 1. Negative for pulmonary embolus. 2. Lobulated nodule in the superior segment of the right upper lobe crossing into the right upper lobe. Highly suspicious nodule(s). Consider PET/CT, or tissue sampling.(ezequiel Roberts al., Fleischner Society, 2017) 3. Lobulated soft tissue lesion in the spur segment of the right lower lobe with small central gas. Suspicious for necrotic nodule. 4. Soft tissue density in the apical right upper lobe with bronchiectasis. Cicatrization atelectasis versus malignancy. 5. Patchy areas of mosaic attenuation in the upper lobes bilaterally, right middle lobe, lingula, and less severe in the left lower lobe. Pneumonia versus lymphangitic spread of CA. 7. Mild bilateral pleural effusions. Ill-defined mass in the spleen. Correlate clinically. 8. Severely displaced fracture of the proximal right humerus. Visualized fracture fragment appears chronic. Humerus is not fully imaged on the study. Correlate clinically. 9. Matted lymphadenopathy in the mediastinum. 10. Additional findings as described. Electronically signed by: Meaghan Jeong On 01/30/2019 23:47:10 PM
[2019-01-30] MEDS ORDERED: DIGOXIN INJ 0.5 MG/2 ML AMP (J1160) IV STA (23:55)
[2019-01-31] MEDS ORDERED: LEVALBUTEROL 1.25 MG/0.5 ML CONCENTRATE NEB INH ONE
[2019-01-31] MEDS ORDERED: TRAM300T9 PO (00:05)
[2019-01-31] MEDS ORDERED: FERR32TA PO (00:05)
[2019-01-31] MEDS ORDERED: ALPR0.25 PO (00:05)
[2019-01-31] MEDS ORDERED: ROPI1TAB PO (00:05)
[2019-01-31] MEDS ORDERED: CARA1TAB6 PO (00:05)
[2019-01-31] MEDS ORDERED: MIRT1TAB15 PO (00:05)
[2019-01-31] MEDS ORDERED: SENN1TAB40 PO (00:05)
[2019-01-31] MEDS ORDERED: IBUP-1091 PO (00:05)
[2019-01-31] MEDS ORDERED: RANI1TAB6 PO (00:05)
[2019-01-31] MEDS ORDERED: ACET-897 PO (00:05)
[2019-01-31] MEDS ORDERED: FUROSEMIDE 40 MG/4 ML VIAL (J1940) As Ordered ONE (00:29)
[2019-01-31] MEDS ORDERED: FUROSEMIDE 20 MG/2 ML VIAL (J1940) As Ordered ONE (00:52)
[2019-01-31] MEDS ORDERED: FUROSEMIDE 20 MG/2 ML VIAL (J1940) IV ONE ×2 (01:15→02:30)
--- NOTE | 2019-01-31 01:45 | ECGEPIP ---
Stationary ECG Study [facility] - ED Test Date: 2019-01-30 Pat Name: YUKI ESTEVEZ Department: Room: - Gender: F Electric Motor Repairer: : 1945 Requested By: JOSE MIGUEL Garg Order Number: [id number] Reading MD: Nico Elliott Measurements Intervals [place] Rate: 140 P: IN: 0 QRS: 74 QRSD: 94 T: 16 QT: 280 QTc: 428 Interpretive Statements ATRIAL FIBRILLATION WITH RAPID VENTRICULAR RESPONSE NONSPECIFIC ST & T-WAVE ABNORMALITY RHYTHM/RATE CHANGE COMPARED TO 02/19/18 Electronically Signed On 01-31-2019 1:44:56 EDT by Nico Elliott
[2019-01-31] MEDS ORDERED: AZITHROMYCIN INJ 500 MG, VIAL MATE ADAPTER 1 EACH in D5W 250 ML IV SCH (02:00)
[2019-01-31 02:21] VITALS: BP 135/97
[2019-01-31] MEDS: methylPREDNISolone INJ 40 MG/1 ML VIAL (J2920) IV SCH ×2 (02:46→10:14)
--- NOTE | 2019-01-31 03:19 | HPEPDOC ---
General Date of Admission Jan 31, 2019 at 00:55 Chief Complaint The patient is a 73-year-old female admitted with a reason for visit of [facility]. History of Present Illness 72-year-old female with past medical history of osteoporosis, rheumatoid arthritis, anxiety/depression, and tobacco abuse presented to the ER with a ief complaint of worsening shortness of breath over the last 24 hours. The patient states that her breathing has gotten worse over the last 24 hours. She denies any fevers, chills, chest pain, palpitations, abdominal pain, sick contacts, PND, orthopnea, or any nausea/vomiting/diarrhea. The patient admits to smoking 3 packs per day for the past 50 years. She denies any history of COPD or other lung disease. She does state that her appetite has been decreased over the last several months, denies any weight loss. In the ER, the patient was noted to be in new onset atrial fibrillation with RVR. In addition, a CT angiogram of the chest was suspicious for malignant nodules. The patient will be admitted to the hospitalist service for further evaluation and management. Home Medications Scheduled Acetaminophen (Tylenol Extra Strength) 500 Mg Tablet, 1,000 MG PO BID, (Reported) Alprazolam (Alprazolam) 0.25 Mg Tablet, 0.25 MG PO BID, (Reported) Ferrous Gluconate (Ferrous Gluconate) 324 Mg Tablet, 324 MG PO DAILY, (Reported) Methotrexate Sodium (Methotrexate) 2.5 Mg Tab, 25 MG PO 1XWK, (Reported) TAKES ON WEDNESDAY MORNINGS Mirtazapine (Mirtazapine) 15 Mg Tab.rapdis, 15 MG PO QHS, (Reported) Ranitidine HCl (Ranitidine HCl) 150 Mg Tablet, 1 TAB PO QHS, (Reported) Ropinirole HCl (Ropinirole HCl) 1 Mg Tablet, 1 MG PO QHS, (Reported) Sennosides/Docusate Sodium (Senna Plus Tablet) 1 Each Tablet, 1 TAB PO BID, (Re ported) Sucralfate (Carafate) 1 Gm Tablet, 1 GM PO QHS, (Reported) Tramadol HCl (Tramadol HCl ER) 300 Mg Tbmp.24hr, 300 MG PO DAILY, (Reported) Scheduled PRN Ibuprofen (Ibuprofen) 200 Mg Tablet, 400 MG PO Q6H PRN for PAIN, (Reported) Allergies Coded Allergies: No Known Allergies (Verified , 01/30/19) Past Medical History Medical History As noted in HPI. Surgical History TUBAL LIGATION REPAIR OF HIP FRACTURE 06/16/2012 COLONOSCOPY 04/23/15 [facility] FIXATION OF RIGHT HIP FX RIGHT HUMERUS 02/19- Social History * Smoker: current smoker (has smoked 3 packs per day of tobacco for 50 years.) Alcohol: Denies Drugs: denies Review of Systems Other systems 10 point review of systems negative unless otherwise specified in HPI. Physical Examination General Exam: Positive: Cooperative, Mild Distress (2/2 SOB) ENT Exam: Positive: Atraumatic, Other ENT (bitemporal wasting noted) Chest Exam: Positive: Rales (faint bibasilar rales noted on auscultation.), Wheezing (upper airway wheezing noted), Diminished Heart Exam: Positive: Tachycardic, Irregular Rhythm, Normal S1, Normal S2 Telemetry: Positive: Atrial fibrillation Abdomen Exam: Positive: Soft Extremity Exam: Negative: Tenderness Psych Exam: Positive: Oriented x 3 Vital Signs Vital Signs Date Time Temp Pulse Resp B/P (MAP) Pulse Ox O2 Delivery O2 Flow Rate FiO2 01/31/19 02:50 94 18 109/77 (88) 97 Nasal Cannula 01/31/19 01:00 98.0 01/30/19 21:16 4.0 Laboratory Data Labs 24H Laboratory Tests 2 01/30/19 21:10: Immature Granulocyte % (Auto) 0.5, White Blood Count 14.3H, Red Blood Count 3.11L, Hemoglobin 10.5L, Hematocrit 31.7L, Mean Corpuscular Volume 101.9H, Mean Corpuscular Hemoglobin 33.8H, Mean Corpuscular Hemoglobin Concent 33.1, Red Cell Distribution Width 13.9, Platelet Count 244, Neutrophils (%) (Auto) 92.3H, Lymphocytes (%) (Auto) 5.1L, Monocytes (%) (Auto) 1.7, Eosinophils (%) (Auto) 0.3, Basophils (%) (Auto) 0.1, Neutrophils # (Auto) 13.2H, Lymphocytes # (Auto) 0.7L, Monocytes # (Auto) 0.3, Eosinophils # (Auto) 0.0, Basophils # (Auto) 0.0, Nucleated Red Blood Cells % (auto) 0.0, Blood Gas Bicarbonate Standard 25.9, Venous Blood pH 7.416, Venous Blood Partial Pressure CO2 42.5, Venous Blood Partial Pressure O2 47.2, Venous Blood Total Carbon Dioxide 28.0, Venous Blood HCO3 26.7, Venous Blood Oxygen Saturation 82.3H, Venous Blood Base Excess 1.9, Anion Gap 6L, Glomerular Filtration Rate > 60.0, Lactic Acid Level 1.1, Blood Urea Nitrogen 15, Creatinine 0.50L, Sodium Level 137, Potassium Level 3.3L, Chloride Level 103, Carbon Dioxide Level 28, Calcium Level 8.2L, Total Creatine Kinase 53, Creatine Kinase MB 3.0, Creatine Kinase MB Relative Index 5.85H, Troponin I 0.03 CBC/BMP Laboratory Tests 01/30/19 21:10 Red Blood Count 3.11 L, Mean Corpuscular Volume 101.9 H, Mean Corpuscular Hemoglobin 33.8 H, Mean Corpuscular Hemoglobin Concent 33.1, Red Cell Distribution Width 13.9, Neutrophils (%) (Auto) 92.3 H, Lymphocytes (%) (Auto) 5.1 L, Monocytes (%) (Auto) 1.7, Eosinophils (%) (Auto) 0.3, Basophils (%) (Auto) 0.1, Neutrophils # (Auto) 13.2 H, Lymphocytes # (Auto) 0.7 L, Monocytes # (Auto) 0.3, Eosinophils # (Auto) 0.0, Basophils # (Auto) 0.0, Calcium Level 8.2 L, Total Creatine Kinase 53 Microbiology Microbiology 01/30/19 Blood Culture, Received Pending Plan / VTE VTE Prophylaxis Ordered?: Yes Plan Plan SOB possibly 2/2 Underlying Lung Malignancy, Post-Obstructive PNA CTA of the chest notable for lobulated nodules in the superior segment of the RUL, RLL. Patient also noted to have soft tissue density in the apical right upper lobe with bronchiectasis. We will cover the patient empirically at this time for CAP with Rocephin and Zithro IV Steroids, Nebs ordered for possible underlying chronic lung disease We will cont to monitor the patient's respiratory status New-Onset Atrial Fibrillation with RVR likely Exacerbated 2/2 Above The patient's B/P has been borderline and thus she was given digoxin in the ER and we have also ordered intermittent doses of lopressor and cardizem for rate control 2D ECHO ordered for further assessment Lovenox SC BID ordered for AC--risks, benefits, and alternative options discussed at length. We will continue to monitor the patient Iron deficiency anemia Continue iron supplementation Restless leg syndrome Continue ropinirole GERD Continue PPI, Carafate Depression/Anxiety Cont Mirtazapine DVT Prophylaxis Lovenox SC Guarded condition at this time with poor long-term outlook given CTA Chest findings--I had an extensive discussion with the patient, her daughter in law (also her HCP), and grand-daughter in law at the bedside about the findings of her Chest CTA. They state that the patient has a DNR/DNI, and would not want any invasive measures done here including central lines, feeding tube, ultrasound guided biopsy of the aforementioned lesions. The patient states that her was recently diagnosed with lung cancer, and she does not want to undergo any of the invasive workup. The patient would like to pursue medical treatment only at this time with antibiotics and supportive care. If her condition were to worsen, they would consider comfort measures only. A MOLST form was signed, dated, and placed in the chart to reflect the wishes aforementioned. LUNA PEDRO MD Jan 31, 2019 03:19
[2019-01-31] MEDS: LEVALBUTEROL 1.25 MG/0.5 ML CONCENTRATE NEB INH SCH ×3 (04:24→12:00)
[2019-01-31 07:13] LABS: HEMATOCRIT 32.1 % (36.0-47.0); HEMOGLOBIN 10.3 g/dl (12.0-15.5); MEAN CORPUSCULAR HEMOGLOBIN 32.9 pg (27.0-33.0); MEAN CORPUSCULAR HGB CONC 32.1 g/dl (32.0-36.5); MEAN CORPUSCULAR VOLUME 102.6 fl (80.0-96.0); PLATELET COUNT, AUTOMATED 231 10^3/uL (150-450); RED BLOOD COUNT 3.13 10^6/uL (4.00-5.40); WHITE BLOOD COUNT 13.7 10^3/uL (4.0-10.0)
[2019-01-31 07:33] VITALS: BP 109/85
[2019-01-31 07:39] LABS: ALBUMIN 2.8 GM/DL (3.2-5.2); ALT/SGPT 17 U/L (12-78); BILIRUBIN,TOTAL 0.5 MG/DL (0.2-1.0); BLOOD UREA NITROGEN 13 MG/DL (7-18); CALCIUM LEVEL 8.1 MG/DL (8.8-10.2); CARBON DIOXIDE LEVEL 28 MEQ/L (21-32); CHLORIDE LEVEL 101 MEQ/L (98-107); CREATININE FOR GFR 0.44 MG/DL (0.55-1.30); GLOMERULAR FILTRATION RATE > 60.0 (>39); GLUCOSE, FASTING 146 MG/DL (70-100); MAGNESIUM LEVEL 1.7 MG/DL (1.8-2.4); SODIUM LEVEL 136 MEQ/L (136-145); TOTAL PROTEIN 6.3 GM/DL (6.4-8.2)
[2019-01-31] MEDS: SENOKOT S TAB PO SCH ×2 (09:00→10:13)
[2019-01-31] MEDS ORDERED: ENOXAPARIN 60 MG/0.6 ML SYR (J1650) SC SCH (09:00)
[2019-01-31] MEDS: FERROUS GLUCONATE 324 MG TAB PO SCH ×2 (09:00→10:13)
[2019-01-31] MEDS ORDERED: HEPARIN SOD (PORCINE) 5000 UNITS/ML VIAL SC SCH (09:00)
[2019-01-31] MEDS ORDERED: ACETAMINOPHEN 500 MG TAB PO SCH (09:00)
[2019-01-31] MEDS ORDERED: ALPRAZolam 0.25 MG TAB PO SCH (09:00)
--- NOTE | 2019-01-31 09:02 | REP ---
Oral chest x-ray: Single view. History: Shortness of breath. Comparison study: February 19, 2018. Findings: There is a chronic right apical pleural thickening and fibrosis. There is upward retraction of the right hilus which is chronic. Some mediastinal shift to the right is again seen. There are milder similar changes on the left. However, today's exam demonstrates large opacities in the upper lung cifuentes bilaterally which are new. There are is an infiltrate pattern in the upper lobes bilaterally but there are also mass-like opacities in each apex. These measure 3.4 cm in greatest diameter for the right perihilar lesion and 4.5 cm in greatest diameter for the left upper lobe lesion. Diffusely prominent pulmonary interstitial markings suggest the possibility of interstitial edema. The thoracic aorta remains tortuous and calcific. Heart is not felt to be enlarged. Impression: Bilateral pulmonary mass-like opacities in the perihilar regions. Bilateral upper lobe infiltrates possible diffuse interstitial pulmonary edema. Recommend chest CT study. Electronically Signed by Iglesia Aguiar MD 01/31/2019 08:53 A
[2019-01-31] MEDS ORDERED: BISACODYL 10 MG SUPP PR PRN (10:45)
[2019-01-31] MEDS ORDERED: LORazepam 1 MG TAB PO PRN (10:45)
[2019-01-31] MEDS ORDERED: MORPHINE 4 MG/ML 1ML VIAL/SYRINGE (J2270) IV PRN (10:45)
[2019-01-31] MEDS ORDERED: ATROPINE SULFATE 1% OP SOLN 2 ML BTL SL PRN (10:45)
[2019-01-31] MEDS ORDERED: HYOSCYAMINE SULFATE 0.125 MG SUBL TABLET PO PRN (10:45)
[2019-01-31] MEDS ORDERED: SCOPOLAMINE 1MG TRANSDERMAL PATCH TOP PRN (10:45)
[2019-01-31] MEDS ORDERED: MORP20SO3 PO ×2 (14:46→15:09)
[2019-01-31] MEDS ORDERED: HYOS125TA PO ×2 (14:46→15:09)
[2019-01-31] MEDS ORDERED: LORA0.5T11 PO ×2 (14:46→15:09)
--- NOTE | 2019-01-31 15:54 | DS.PDOC ---
Discharge Summary General Date of Admission Jan 31, 2019 at 00:55 Date of Discharge 01/31/19 Discharge Summary PROCEDURES PERFORMED DURING STAY: [None]. ADMITTING DIAGNOSES: 1. Suspicious right Lung Mass and Suspicious for necrotic nodule. COPD pneumonia, possible postobstructive pneumonia 2.Mild bilateral pleural effusions. 3.Severely displaced fracture of the proximal right humerus. chronic fracture fragment 4.Matted lymphadenopathy in the mediastinum. 5.Atrial fibrillation DISCHARGE DIAGNOSES: 1. Suspicious right Lung Mass and Suspicious for necrotic nodule. COPD. 2.Mild bilateral pleural effusions. 3.Severely displaced fracture of the proximal right humerus. chronic fracture fragment 4.Matted lymphadenopathy in the mediastinum. 5.Atrial fibrillation 6. Osteoporosis 7.Rheumatoid arthritis 8.Anxiety, depression 10.Tobacco abuse, COPD 11. Restless leg syndrome 12. GERD 13 iron deficiency COMPLICATIONS/CHIEF COMPLAINT: Lung Mass. HISTORY OF PRESENT ILLNESS: [72-year-old female with past medical history of osteoporosis, rheumatoid arthritis, anxiety/depression, and tobacco abuse pre sented to the ER with a chief complaint of worsening shortness of breath over the last 24 hours. The patient states that her breathing has gotten worse over the last 24 hours. She denies any fevers, chills, chest pain, palpitations, abdominal pain, sick contacts, PND, orthopnea, or any nausea/vomiting/diarrhea. The patient admits to smoking 3 packs per day for the past 50 years. She denies any history of COPD or other lung disease. She does state that her appetite has been decreased over the last several months, denies any weight loss. In the ER, the patient was noted to be in new onset atrial fibrillation with RVR. In addition, a CT angiogram of the chest was suspicious for malignant nodul es. The patient will be admitted to the hospitalist service for further evaluation and management.]. HOSPITAL COURSE: [73-year-old female with significant past medical history mentioned above presenting complaint shortness of breath. Patient was evaluated in the emergency room with a CTA of the chest showing suspicious lung mass. Patient also developed new onset of atrial fibrillation. Patient and family expressed to the admitting hospitalist that they did not want extensive workup or treatment for the lung mass. Agree to possible postobstructive pneumonia treatment and intermittent rate controlling medication. They wanted DNR/DNI. They also considered [employer]. On my encounter with the patient and family they reaffirmed their wishes is to make patient comfortable. They did not want any further workup for the lung mass and limited treatment for atrial fibrillation as treatment was also limited due to her soft blood pressure. I spoke to the patient's healthcare proxy Radha Joshua ([id number]) and Thaddeus Joshua () who reaffirm refusal of treatment and desire for CODE [employer]BER ST[employer]. Patient denied of any chest pain or palpitation or discomfort. Patient's family requested the patient be discharged home with hospice. Hospice set up within the work and greater patient will be seen by hospitalist service tomorrow. Patient was going to be discharged home today with follow-up with hospice service in the a.m. Due to family gathering today, healthcare proxies and patient's family sign patient out AMA prior to receiving prescription and discharge summary. Due to technical difficulty E prescribing, medication was sent [facility] by the hospitalist. Hospitalist and will recheck out to the family and informed them of the medication availability. DISCHARGE MEDICATIONS: Please see below. ALLERGIES: Please see below. PHYSICAL EXAMINATION ON DISCHARGE: General Exam: Cooperative, intermittently confused ENT Exam: Atraumatic, bilateral temporal wasting, PERRLA Chest Exam: Faint bibasilar rales noted on auscultation, Wheezing or upper airway, Diminished air entry Heart Exam: Tachycardic, Irregular Rhythm, Normal S1, Normal S2 Telemetry: Atrial fibrillation Abdomen Exam: Soft Extremity Exam: Tenderness Psych Exam: Not in acute distress, oriented 3 with intermittent confusion, family and her healthcare proxy at the bedside LABORATORY DATA: Please see below. IMAGING: [1. Negative for pulmonary embolus. 2. Lobulated nodule in the superior segment of the right upper lobe crossing into the right upper lobe. Highly suspicious nodule(s). Consider PET/CT, or tissue sampling.(Alejandra et al., Fleischner Society, 2017) 3. Lobulated soft tissue lesion in the spur segment of the right lower lobe with small central gas. Suspicious for necrotic nodule. 4. Soft tissue density in the apical right upper lobe with bronchiectasis. Cicatrization atelectasis versus malignancy. 5. Patchy areas of mosaic attenuation in the upper lobes bilaterally, right middle lobe, lingula, and less severe in the left lower lobe. Pneumonia versus lymphangitic spread of CA. 7. Mild bilateral pleural effusions. Ill-defined mass in the spleen. Correlate clinically. 8. Severely displaced fracture of the proximal right humerus. Visualized fracture fragment appears chronic. Humerus is not fully imaged on the study. Correlate clinically. 9. Matted lymphadenopathy in the mediastinum. 10. Additional findings as described. ] PROGNOSIS: [Poor] ACTIVITY: [As tolerated]. DIET: [Regular] DISCHARGE PLAN: [Home with Hospice] DISPOSITION: Home DISCHARGE INSTRUCTIONS: Please follow up with Hospice service ITEMS TO FOLLOWUP ON ON OUTPATIENT: Please follow up with Hospice service DISCHARGE CONDITION: [Stable]. TIME SPENT ON DISCHARGE: Greater than [45] minutes. Vital Signs/I&Os Vital Signs Date Time Temp Pulse Resp B/P (MAP) Pulse Ox O2 Delivery O2 Flow Rate FiO2 01/31/19 11:18 146 20 98 Nasal Cannula 2.0 01/31/19 07:33 109/85 (93) 01/31/19 05:31 98.3 I&O- Last 24 Hours up to 6 AM 01/31/19 06:00 Intake Total 1305 ml Output Total 1100 ml Balance 205 ml Laboratory Data Labs 24H Laboratory Tests 2 01/30/19 21:10: Immature Granulocyte % (Auto) 0.5, White Blood Count 14.3H, Red Blood Count 3.11L, Hemoglobin 10.5L, Hematocrit 31.7L, Mean Corpuscular Volume 101.9H, Mean Corpuscular Hemoglobin 33.8H, Mean Corpuscular Hemoglobin Concent 33.1, Red Cell Distribution Width 13.9, Platelet Count 244, Neutrophils (%) (Auto) 92.3H, Lymphocytes (%) (Auto) 5.1L, Monocytes (%) (Auto) 1.7, Eosinophils (%) (Auto) 0.3, Basophils (%) (Auto) 0.1, Neutrophils # (Auto) 13.2H, Lymphocytes # (Auto) 0.7L, Monocytes # (Auto) 0.3, Eosinophils # (Auto) 0.0, Basophils # (Auto) 0.0, Nucleated Red Blood Cells % (auto) 0.0, Blood Gas Bicarbonate Standard 25.9, Venous Blood pH 7.416, Venous Blood Partial Pressure CO2 42.5, Venous Blood Partial Pressure O2 47.2, Venous Blood Total Carbon Dioxide 28.0, Venous Blood HCO3 26.7, Venous Blood Oxygen Saturation 82.3H, Venous Blood Base Excess 1.9, Anion Gap 6L, Glomerular Filtration Rate > 60.0, Lactic Acid Level 1.1, Blood Urea Nitrogen 15, Creatinine 0.50L, Sodium Level 137, Potassium Level 3.3L, Chloride Level 103, Carbon Dioxide Level 28, Calcium Level 8.2L, Total Creatine Kinase 53, Creatine Kinase MB 3.0, Creatine Kinase MB Relative Index 5.85H, Troponin I 0.03 01/31/19 06:24: Nucleated Red Blood Cells % (auto) 0.0, Anion Gap 7L, Glomerular Filtration Rate > 60.0, Blood Urea Nitrogen 13, Creatinine 0.44L, Sodium Level 136, Potassium Level 3.0L, Chloride Level 101, Carbon Dioxide Level 28, Calcium Level 8.1L, Aspartate Amino Transf (AST/SGOT) 11, Alanine Aminotransferase (ALT/SGPT) 17, Alkaline Phosphatase 75, Total Bilirubin 0.5, Total Protein 6.3L, Albumin 2.8L, Magnesium Level 1.7L, Albumin/Globulin Ratio 0.80L CBC/BMP Laboratory Tests 01/30/19 21:10 Red Blood Count 3.11 L, Mean Corpuscular Volume 101.9 H, Mean Corpuscular Hemoglobin 33.8 H, Mean Corpuscular Hemoglobin Concent 33.1, Red Cell Distribution Width 13.9, Neutrophils (%) (Auto) 92.3 H, Lymphocytes (%) (Auto) 5.1 L, Monocytes (%) (Auto) 1.7, Eosinophils (%) (Auto) 0.3, Basophils (%) (Auto) 0.1, Neutrophils # (Auto) 13.2 H, Lymphocytes # (Auto) 0.7 L, Monocytes # (Auto) 0.3, Eosinophils # (Auto) 0.0, Basophils # (Auto) 0.0, Calcium Level 8.2 L, Total Creatine Kinase 53 01/31/19 06:24 Red Blood Count 3.13 L, Mean Corpuscular Volume 102.6 H, Mean Corpuscular Hemoglobin 32.9, Mean Corpuscular Hemoglobin Concent 32.1, Red Cell Distribution Width 14.1, Calcium Level 8.1 L, Aspartate Amino Transf (AST/SGOT) 11, Alanine Aminotransferase (ALT/SGPT) 17, Alkaline Phosphatase 75, Total Bilirubin 0.5, Total Protein 6.3 L, Albumin 2.8 L Microbiology Microbiology 01/30/19 Blood Culture, Received Pending Discharge Medications Scheduled PRN Hyoscyamine Sulfate (Hyoscyamine Sulfate) 0.125 Mg Tab.subl, 0.125 MG PO Q4HP PRN for TERMINAL SECRETIONS Use sublingually if unable to swallow. Lorazepam (Lorazepam) 0.5 Mg Tablet, 0.5 MG PO Q4HP PRN for ANXIETY/AGITATION Use sublingually if unable to swallow. Morphine Sulfate (Morphine Sulfate) 100 Mg/5 Ml Solution, 0.25-1 ML PO Q2H PRN for PAIN OR DYSPNEA Use sublingually if unable to swallow. Allergies Coded Allergies: No Known Allergies (Verified , 01/30/19) SAIMA HNERY MD Jan 31, 2019 15:53
[2019-01-31] MEDS ORDERED: cefTRIAXone SOD 1 GM in D5W MINI-BAG PLUS 50 ML IV SCH (22:00)
== END 2019-01-31 13:05 | disposition left against medical advice (07) | DRG 193 ==
LOC: M ED 20:45 → M ED INP 01-31 00:55
PROVIDERS: ADMIT Internal Medicine; ATTEND Internal Medicine
DX: J18.9 Pneumonia, unspecified organism (principal); J85.0 Gangrene and necrosis of lung; J90 Pleural effusion, not elsewhere classified; R60.0 Localized edema; S30.1XXA Contusion of abdominal wall, initial encounter; W19.XXXA Unspecified fall, initial encounter; Y92.9 Unspecified place or not applicable; R91.8 Other nonspecific abnormal finding of lung field; F17.200 Nicotine dependence, unspecified, uncomplicated; M81.0 Age-related osteoporosis without current pathological fracture; M06.9 Rheumatoid arthritis, unspecified; S42.201D Unspecified fracture of upper end of right humerus, subsequent encounter for fracture with routine healing; Z51.5 Encounter for palliative care; Z66 Do not resuscitate; F41.9 Anxiety disorder, unspecified; R59.0 Localized enlarged lymph nodes; G25.81 Restless legs syndrome; K21.9 Gastro-esophageal reflux disease without esophagitis; D50.9 Iron deficiency anemia, unspecified; F32.9 Major depressive disorder, single episode, unspecified; I48.91 Unspecified atrial fibrillation; Z79.899 Other long term (current) drug therapy; Z79.891 Long term (current) use of opiate analgesic

== ENCOUNTER → 2019-01-30 | Outpatient (CLI) | payer MEDICARE ==
[~2019-01-30] MED LIST changes: -/WARF25TA PO; +ACET-897 PO; +CARA1TAB6 PO; +COUM1TAB18 PO; +FERR32TA PO; +HYOS125TA PO; +IBUP-1091 PO; +LORA0.5T11 PO; +MIRT1TAB15 PO; +MORP20SO3 PO; +OXYC1TAB23 PO; -PERCOCET PO; +RANI1TAB6 PO; +ROPI1TAB PO; -SENN1TAB2 PO; +SENN1TAB40 PO; +TRAM300T9 PO
--- NOTE | 2019-01-30 10:03 | REP ---
ULTRASOUND RIGHT FLANK SOFT TISSUES: Real-time sonographic evaluation of the right flank soft tissues was performed just above the right iliac crest posterolaterally in an area of bruising. There is no evidence of fluid collection or mass sonographically. Minimal subcutaneous edema is noted. Electronically Signed by Ulysses Arce MD 01/30/2019 05:23 P
== END ==
LOC: M RAD 07:05
PROVIDERS: ATTEND Nurse Practitioner Adult Health
DX: R60.0 Localized edema (principal); S30.1XXA Contusion of abdominal wall, initial encounter; W19.XXXA Unspecified fall, initial encounter; Y92.9 Unspecified place or not applicable